=== PATIENT | male | born 2000 | race Caucasian/White ===

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

== ENCOUNTER 2025-03-31 16:12 | Emergency (ER) | payer MEDICAID, OTHER ==
[2025-03-31 16:20] VITALS: PULSE 85; RESP 18; O2SAT 99
== END 2025-03-31 17:54 | disposition left against medical advice (07) ==
LOC: ER 16:12
DX: M25.552 Pain in left hip (principal); Z53.21 Procedure and treatment not carried out due to patient leaving prior to being seen by health care provider
CPT/HCPCS: 99281